=== PATIENT | female | born 1945 | race Caucasian/White ===

== ENCOUNTER 2016-10-12 05:51 | Inpatient (IN) | payer OTHER, MEDICAID ==
[~2016-10-12] VITALS: Ht 174 cm; Wt 78.5 kg
[~2016-10-12 05:51] MED LIST: LEVO75TA42 PO
[2016-10-12 07:03] LABS: Urine Bilirubin Negative (Negative); Urine Blood Negative /uL (Negative); Urine Glucose Normal (Normal); Urine Ketone Negative (Negative); Urine Mucus FEW (None Seen); Urine Nitrite Negative (Negative); Urine RBC 1 /hpf (0 - 4); Urine Squamous Epithelial Cell FEW /hpf (<5); Urine Urobilinogen Normal (Negative); Urine pH 7.5 (5.0-8.0)
[2016-10-12 07:04] LABS: Urine Color Straw (Yellow)
[2016-10-12 07:04] LABS: Basophils # (auto) 0 uL; Eosinophils # (auto) 0 uL; Eosinophils % (auto) 0.4 % (0.0-7.0); Hematocrit 42.4 % (36.0-46.0); Hemoglobin 14.1 g/dL (12.2-16.2); Lymphocytes # (auto) 1.1 uL; Lymphocytes % (auto) 10.1 % (10.0-50.0); Mean Corpuscular Hemoglobin 28.9 pg (28.0-32.0); Mean Corpuscular Hgb Conc. 33.1 g/dL (32.0-36.0); Mean Corpuscular Volume 87.2 fL (80.0-100.0); Mean Platelet Volume 9.3 fL (7.4-10.4); Monocytes # (auto) 0.7 uL; Monocytes % (auto) 6.1 % (0.0-12.0); Neutrophils # (auto) 9.1 uL; Neutrophils % (auto) 83.4 % (37.0-80.0); Platelet Count (auto) 271 10^3/uL (140-450); Red Cell Distribution Width 13.8 % (11.6-16.0); White Blood Cell 10.9 10^3/uL (4.4-10.8)
[2016-10-12 07:10] LABS: Albumin 3.4 g/dL (3.4-5.0); Anion Gap 9 (5-15); BUN/Creatinine Ratio 15.9; Blood Urea Nitrogen 13 mg/dL (7-18); Calcium 8.1 mg/dL (8.5-10.1); Carbon Dioxide 23 mmol/L (21-32); Chloride 107 mmol/L (98-107); GFR African American 89 mL/min; GFR Non-African American 73 mL/min; Glucose 115 mg/dL (74-106); Potassium 3.9 mmol/L (3.5-5.1); Sodium 139 mmol/L (136-145)
[2016-10-12 07:16] LABS: Alkaline Phosphatase 106 U/L (45-117); Aspartate Aminotransferase 14 U/L (15-37); Bilirubin, Total 1.3 mg/dL (0.2-1.0); Total Protein 6.8 g/dL (6.4-8.2)
[2016-10-12] MEDS ORDERED: SODIUM CHLORIDE 0.9% 1,000 ML IVB ONE (09:07)
[2016-10-12] MEDS ORDERED: metroNIDAZOLE 500MG/100ML 100 ML IV ONE (09:15)
[2016-10-12] MEDS ORDERED: ONDANSETRON HCL 4 MG/2 ML VIAL IV ONE (09:15)
[2016-10-12] MEDS ORDERED: MORPHINE SULFATE 4 MG/ML SYRG IV ONE (09:15)
[2016-10-12] MEDS ORDERED: TEMAZEPAM 15 MG CAP PO PRN (09:30)
[2016-10-12] MEDS ORDERED: ACETAMINOPHEN 500 MG TAB PO PRN (09:30)
[2016-10-12] MEDS ORDERED: LORazepam 0.5 MG TAB PO PRN (09:30)
[2016-10-12] MEDS ORDERED: cefTRIAXone 1GM/50ML D5W 50 ML IV ONE (09:30)
[2016-10-12] MEDS ORDERED: HYDROcodone-ACET 5/325MG TAB PO PRN (09:30)
[2016-10-12] MEDS: FAMOTIDINE (10MG/ML) 2ML VL IV SCH ×2 (09:59→21:02)
[2016-10-12] MEDS: ENOXAPARIN SOD 40 MG/0.4 ML SYRINGE SC SCH (10:47)
[2016-10-12] MEDS: SODIUM CHLORIDE 0.9% 1,000 ML IV SCH (10:47)
[2016-10-12] MEDS: LEVOFLOXACIN 500MG 100 ML IV SCH (10:47)
[2016-10-12] MEDS ORDERED: CLINDAMYCIN 900MG IV 50 ML IV ONE (11:00)
[2016-10-12 13:46] VITALS: BP 128/72
[2016-10-12 17:00] VITALS: BP 103/57
[2016-10-12] MEDS: CLINDAMYCIN 600MG IV 50 ML IV SCH (18:26)
[2016-10-12] MEDS: PROMETHAZINE HCL 25 MG/ML 1ML IV PRN (19:31)
[2016-10-12] MEDS: MORPHINE SULF INJ 2 MG/ML SYRINGE 1ML IV PRN (19:31)
[2016-10-12 20:00] VITALS: BP 103/57
[2016-10-12 22:00] VITALS: BP 144/79
[2016-10-13] MEDS: CLINDAMYCIN 600MG IV 50 ML IV SCH ×3 (02:20→18:30)
[2016-10-13] MEDS: SODIUM CHLORIDE 0.9% 1,000 ML IV SCH ×4 (04:04→17:28)
[2016-10-13 04:54] VITALS: BP 130/75
[2016-10-13] MEDS: MORPHINE SULF INJ 2 MG/ML SYRINGE 1ML IV PRN ×2 (06:06→18:21)
[2016-10-13] MEDS: PROMETHAZINE HCL 25 MG/ML 1ML IV PRN (06:06)
[2016-10-13 06:36] LABS: Basophils # (auto) 0 uL; Basophils % (auto) 0.3 % (0.0-2.0); Eosinophils # (auto) 0 uL; Eosinophils % (auto) 0.3 % (0.0-7.0); Hematocrit 38.4 % (36.0-46.0); Hemoglobin 12.4 g/dL (12.2-16.2); Lymphocytes # (auto) 0.8 uL; Lymphocytes % (auto) 9.3 % (10.0-50.0); Mean Corpuscular Hemoglobin 28.6 pg (28.0-32.0); Mean Corpuscular Hgb Conc. 32.4 g/dL (32.0-36.0); Mean Corpuscular Volume 88.3 fL (80.0-100.0); Mean Platelet Volume 9.9 fL (7.4-10.4); Monocytes # (auto) 0.9 uL; Monocytes % (auto) 10.2 % (0.0-12.0); Neutrophils # (auto) 7.2 uL; Neutrophils % (auto) 79.9 % (37.0-80.0); Platelet Count (auto) 228 10^3/uL (140-450); Red Cell Distribution Width 14.3 % (11.6-16.0)
[2016-10-13 07:26] LABS: Albumin 2.8 g/dL (3.4-5.0); Bilirubin, Total 0.9 mg/dL (0.2-1.0); Total Protein 6.1 g/dL (6.4-8.2)
[2016-10-13 09:00] VITALS: BP 156/84
[2016-10-13] MEDS ORDERED: cefTRIAXone 1GM/50ML D5W 50 ML IV SCH (09:00)
[2016-10-13] MEDS: FAMOTIDINE (10MG/ML) 2ML VL IV SCH ×2 (09:07→21:08)
[2016-10-13] MEDS: LEVOFLOXACIN 500MG 100 ML IV SCH (10:10)
[2016-10-13] MEDS: ENOXAPARIN SOD 40 MG/0.4 ML SYRINGE SC SCH (10:10)
[2016-10-13] MEDS: DOCUSATE SOD 100 MG CAP PO SCH ×2 (10:10→21:09)
[2016-10-13 12:57] VITALS: BP 133/50
[2016-10-13 16:59] VITALS: BP 118/61
[2016-10-13] MEDS ORDERED: LACTULOSE 20Gm/30ML SOLN PO PRN (19:15)
[2016-10-13 20:00] VITALS: BP 118/61
[2016-10-13 21:45] VITALS: BP 118/66
[2016-10-14] MEDS: CLINDAMYCIN 600MG IV 50 ML IV SCH ×3 (04:16→18:27)
[2016-10-14 04:50] VITALS: BP 126/70
[2016-10-14] MEDS: SODIUM CHLORIDE 0.9% 1,000 ML IV SCH ×2 (06:19→22:07)
[2016-10-14] MEDS: MORPHINE SULF INJ 2 MG/ML SYRINGE 1ML IV PRN (06:19)
[2016-10-14 08:52] VITALS: BP 130/70
[2016-10-14] MEDS: FAMOTIDINE (10MG/ML) 2ML VL IV SCH ×2 (08:52→21:11)
[2016-10-14] MEDS: LEVOFLOXACIN 500MG 100 ML IV SCH (08:53)
[2016-10-14] MEDS: ENOXAPARIN SOD 40 MG/0.4 ML SYRINGE SC SCH (08:53)
[2016-10-14] MEDS: DOCUSATE SOD 100 MG CAP PO SCH ×2 (08:53→21:11)
[2016-10-14 13:00] VITALS: BP 138/79
[2016-10-14 17:00] VITALS: BP 140/74
[2016-10-14 20:00] VITALS: BP 140/74
[2016-10-14 21:45] VITALS: BP 152/85
[2016-10-15] MEDS: CLINDAMYCIN 600MG IV 50 ML IV SCH (02:33)
[2016-10-15 04:54] VITALS: BP 141/56
[2016-10-15] MEDS: SODIUM CHLORIDE 0.9% 1,000 ML IV SCH ×2 (05:32→18:07)
[2016-10-15] MEDS ORDERED: GASTROGRAFIN 30 ML SOL ONE (07:25)
[2016-10-15 09:00] VITALS: BP 135/65
[2016-10-15] MEDS: DOCUSATE SOD 100 MG CAP PO SCH ×2 (10:00→21:55)
[2016-10-15] MEDS ORDERED: LEVOTHYROXINE SODIUM 25 MCG TAB PO ONE (11:15)
[2016-10-15] MEDS: LEVOFLOXACIN 500MG 100 ML IV SCH (12:23)
[2016-10-15] MEDS: FAMOTIDINE (10MG/ML) 2ML VL IV SCH ×2 (12:24→21:55)
[2016-10-15 13:00] VITALS: BP 133/68
[2016-10-15] MEDS: metroNIDAZOLE 500MG/100ML 100 ML IV SCH ×2 (16:49→20:50)
[2016-10-15 17:00] VITALS: BP 158/65
[2016-10-15 22:04] VITALS: BP 157/81
[2016-10-16] MEDS: metroNIDAZOLE 500MG/100ML 100 ML IV SCH ×2 (00:19→05:09)
[2016-10-16 04:49] VITALS: BP 160/72
[2016-10-16] MEDS: SODIUM CHLORIDE 0.9% 1,000 ML IV SCH (05:13)
[2016-10-16 06:27] LABS: Basophils # (auto) 0.1 uL; Basophils % (auto) 2.1 % (0.0-2.0); Eosinophils # (auto) 0.1 uL; Hematocrit 34.8 % (36.0-46.0); Hemoglobin 11.6 g/dL (12.2-16.2); Lymphocytes # (auto) 1.1 uL; Lymphocytes % (auto) 22.2 % (10.0-50.0); Mean Corpuscular Hemoglobin 29.2 pg (28.0-32.0); Mean Corpuscular Hgb Conc. 33.4 g/dL (32.0-36.0); Mean Corpuscular Volume 87.4 fL (80.0-100.0); Mean Platelet Volume 9.5 fL (7.4-10.4); Monocytes # (auto) 0.4 uL; Monocytes % (auto) 8.9 % (0.0-12.0); Neutrophils # (auto) 3.1 uL; Neutrophils % (auto) 64.8 % (37.0-80.0); Platelet Count (auto) 205 10^3/uL (140-450); Red Cell Distribution Width 14.3 % (11.6-16.0); White Blood Cell 4.8 10^3/uL (4.4-10.8)
[2016-10-16 06:40] LABS: INR 1.05 (0.9-1.15); Partial Thromboplastin Time 26.8 sec (22.64-33.71); Prothrombin Time 10.8 sec (9.37-12.3)
[2016-10-16 06:46] LABS: BUN/Creatinine Ratio 10.7; Calcium 7.9 mg/dL (8.5-10.1); Potassium 3.6 mmol/L (3.5-5.1)
[2016-10-16] MEDS ORDERED: LEVOTHYROXINE SODIUM 25 MCG TAB PO SCH (07:00)
[2016-10-16 08:00] VITALS: BP 139/75
[2016-10-16 09:00] VITALS: BP 139/75
[2016-10-16] MEDS: FAMOTIDINE (10MG/ML) 2ML VL IV SCH (09:03)
[2016-10-16] MEDS: LEVOFLOXACIN 500MG 100 ML IV SCH (09:03)
[2016-10-16] MEDS: DOCUSATE SOD 100 MG CAP PO SCH (09:04)
[2016-10-16 13:00] VITALS: BP 176/76
[2016-10-16] MEDS ORDERED: NOR5T PO (14:15)
[2016-10-16] MEDS ORDERED: LEVO500T3 PO (14:17)
[2016-10-16] MEDS ORDERED: METR500T PO (14:17)
[2016-10-16 14:40] VITALS: BP 157/67
== END 2016-10-16 15:00 | disposition home or self-care (01) | DRG 392 ==
LOC: ER 05:52 → OVERFLOW 05:53 → EAST 14:21
PROVIDERS: ADMIT Internal Medicine; ATTEND Internal Medicine
DX: K57.92 Diverticulitis of intestine, part unspecified, without perforation or abscess without bleeding (principal); J44.9 Chronic obstructive pulmonary disease, unspecified; J45.909 Unspecified asthma, uncomplicated; E03.9 Hypothyroidism, unspecified; R73.9 Hyperglycemia, unspecified; K57.90 Diverticulosis of intestine, part unspecified, without perforation or abscess without bleeding; F17.210 Nicotine dependence, cigarettes, uncomplicated; K80.20 Calculus of gallbladder without cholecystitis without obstruction; Z80.1 Family history of malignant neoplasm of trachea, bronchus and lung; Z81.8 Family history of other mental and behavioral disorders; Z82.49 Family history of ischemic heart disease and other diseases of the circulatory system; Z86.73 Personal history of transient ischemic attack (TIA), and cerebral infarction without residual deficits; Z90.710 Acquired absence of both cervix and uterus; Z88.0 Allergy status to penicillin; Z88.1 Allergy status to other antibiotic agents; Z79.899 Other long term (current) drug therapy; Z80.9 Family history of malignant neoplasm, unspecified
CPT/HCPCS: 36415; 71010; 74176; 80048; 80053; 81001; 82378; 83605; 83690; 83735; 84443; 84484; 85025; 85610; 85652; 85730; 86141; 87040; 93005; 94761; 96361; 96365; 96367; 96375; J1956; J2405; J3490

== ENCOUNTER 2017-01-02 22:40 | Emergency (ER) | payer OTHER, MEDICAID ==
[~2017-01-02] VITALS: Ht 172.7 cm; Wt 72.6 kg
[~2017-01-02 22:40] MED LIST changes: +HYDR-4663 PO; +LEVO500T21 PO; +METR500T PO
[2017-01-02 23:13] VITALS: BP 165/85
== END 2017-01-03 01:26 | disposition left against medical advice (07) ==
LOC: ER 22:40
DX: I10 Essential (primary) hypertension (principal); Z53.21 Procedure and treatment not carried out due to patient leaving prior to being seen by health care provider

== ENCOUNTER 2017-01-03 12:31 | Emergency (ER) | payer OTHER, MEDICAID ==
[~2017-01-03] VITALS: Ht 172.7 cm; Wt 73.5 kg
[2017-01-03 13:06] VITALS: BP 120/72
== END 2017-01-03 16:28 | disposition home or self-care (01) ==
LOC: ER 12:34
DX: R51 Headache (principal); F17.210 Nicotine dependence, cigarettes, uncomplicated; J44.9 Chronic obstructive pulmonary disease, unspecified; E07.89 Other specified disorders of thyroid; Z86.73 Personal history of transient ischemic attack (TIA), and cerebral infarction without residual deficits; Z90.710 Acquired absence of both cervix and uterus; Z90.89 Acquired absence of other organs; Z88.0 Allergy status to penicillin; Z88.1 Allergy status to other antibiotic agents

== ENCOUNTER 2019-06-20 04:52 | Emergency (ER) | payer OTHER, MEDICAID ==
[~2019-06-20] VITALS: Ht 175.3 cm; Wt 72.6 kg
[~2019-06-20 04:52] MED LIST changes: -HYDR-4663 PO; +HYDR-4833 PO
[2019-06-20 05:04] VITALS: BP 156/59
[2019-06-20] MEDS ORDERED: DexAMETHasone SOD PHOS 10MG/1ML VIAL INJ IM ONE (05:45)
[2019-06-20] MEDS ORDERED: ACETAMINOPHEN/CODEINE#3 (300/30mg) TAB PO ONE (05:45)
== END 2019-06-20 05:51 | disposition home or self-care (01) ==
LOC: ER 04:52
DX: J40 Bronchitis, not specified as acute or chronic (principal); J06.9 Acute upper respiratory infection, unspecified; H65.93 Unspecified nonsuppurative otitis media, bilateral; J44.9 Chronic obstructive pulmonary disease, unspecified; F17.210 Nicotine dependence, cigarettes, uncomplicated; Z86.73 Personal history of transient ischemic attack (TIA), and cerebral infarction without residual deficits; Z90.710 Acquired absence of both cervix and uterus; Z90.89 Acquired absence of other organs; Z88.0 Allergy status to penicillin; Z88.1 Allergy status to other antibiotic agents; Z79.2 Long term (current) use of antibiotics; Z79.899 Other long term (current) drug therapy
CPT/HCPCS: 96372; 99283; J1100

== ENCOUNTER 2023-01-26 11:30 | Emergency (ER) | payer OTHER, MEDICAID ==
[~2023-01-26] VITALS: Ht 172.7 cm; Wt 59.5 kg
[~2023-01-26 11:30] MED LIST changes: -LEVO500T21 PO; +LEVO500T31 PO
[2023-01-26] MEDS ORDERED: SODIUM CHLORIDE 0.9% 500 ML IV ONE (12:15)
[2023-01-26] MEDS ORDERED: HYDROmorphone HCL 2 MG/ML VL/or syr IV ONE (12:15)
[2023-01-26] MEDS ORDERED: ONDANSETRON HCL 4 MG/2 ML VIAL IV ONE (12:15)
[2023-01-26 13:16] LABS: Basophils # (auto) 0.1 10 ^3/uL (0-0.2); Basophils % (auto) 0.6 % (0.0-2.0); Eosinophils # (auto) 0.1 10 ^3/uL (0-0.8); Eosinophils % (auto) 0.6 % (0.0-7.0); Hematocrit 40.9 % (36.0-46.0); Hemoglobin 13.4 g/dL (12.2-16.2); Lymphocytes # (auto) 0.8 10 ^3/uL (0.4-5.4); Lymphocytes % (auto) 7.5 % (10.0-50.0); Mean Corpuscular Hemoglobin 30.8 pg (28.0-32.0); Mean Corpuscular Hgb Conc. 32.8 g/dL (32.0-36.0); Mean Corpuscular Volume 93.7 fL (80.0-100.0); Monocytes # (auto) 0.4 10 ^3/uL (0-1.3); Monocytes % (auto) 3.7 % (0.0-12.0); Neutrophils # (auto) 8.9 10 ^3/uL (1.6-8.6); Neutrophils % (auto) 87.6 % (37.0-80.0); Red Blood Cells 4.36 10^6/uL (4.0-5.20); Red Cell Distribution Width 14.7 % (11.8-14.3); White Blood Cell 10.1 10^3/uL (4.4-10.8)
[2023-01-26 13:38] LABS: Albumin 3.3 g/dL (3.4-5.0); Calcium 8.2 mg/dL (8.5-10.1); INR 1.08 (0.9-1.15); Partial Thromboplastin Time 26.3 SEC (24.5-34.5); Potassium 3.7 mmol/L (3.5-5.1)
[2023-01-26 13:42] LABS: Bilirubin, Total 0.8 mg/dL (0.2-1.0)
[2023-01-26] MEDS ORDERED: SODIUM CHLORIDE 0.9% 1,000 ML IV ONE (15:00)
[2023-01-26] MEDS ORDERED: Acetam/CODEINE 120mg/12mg per 5mL UD PO ONE (15:00)
[2023-01-26] MEDS ORDERED: MELO10CA2 PO ×3 (16:36→16:50)
[2023-01-26] MEDS ORDERED: ACET-1304 PO ×4 (16:36→18:03)
[2023-01-26 17:49] VITALS: BP 148/70
[2023-01-26] MEDS ORDERED: MELO-335 PO (18:03)
== END 2023-01-26 18:11 | disposition home or self-care (01) ==
LOC: ER 11:30 → EDBD 11:30 → ER 18:11
DX: S70.01XA Contusion of right hip, initial encounter (principal); S30.0XXA Contusion of lower back and pelvis, initial encounter; R79.89 Other specified abnormal findings of blood chemistry; E86.0 Dehydration; E03.9 Hypothyroidism, unspecified; J44.9 Chronic obstructive pulmonary disease, unspecified; F17.210 Nicotine dependence, cigarettes, uncomplicated; E88.09 Other disorders of plasma-protein metabolism, not elsewhere classified; Z90.710 Acquired absence of both cervix and uterus; Z86.73 Personal history of transient ischemic attack (TIA), and cerebral infarction without residual deficits; Z88.1 Allergy status to other antibiotic agents; Z88.0 Allergy status to penicillin; W01.0XXA Fall on same level from slipping, tripping and stumbling without subsequent striking against object, initial encounter; Y93.89 Activity, other specified; Y92.89 Other specified places as the place of occurrence of the external cause; Y99.8 Other external cause status
CPT/HCPCS: 36415; 71045; 72100; 73502; 80053; 85025; 85610; 85730; 93005; 96361; 96374; 96375; 99285; J1170; J2405; J7030; J7040